=== PATIENT | male | born 1970 | race Hispanic/Latino ===

== ENCOUNTER 2025-02-23 08:42 | Observation (INO) | payer BC ==
[2025-02-23] MEDS ORDERED: ONDANSETRON 4 MG/2 ML VIAL ONE (08:58)
--- NOTE | 2025-02-23 09:19 | RAD REPORT ---
EXAMINATION: ONE VIEW CHEST XR CLINICAL INDICATION: syncope vs seizure TECHNIQUE: Frontal chest projection is submitted. Examination is limited by patient positioning and t echnique. COMPARISON: No prior exam. FINDINGS: The lungs are well inflated and clear. The heart is moderately enlarged. No displaced fractures ident ified. IMPRESSION: No acute intrathoracic abnormalities.
[2025-02-23 09:42] LABS: Absolute Eosinophils 0.3 K/uL (0-0.5); Absolute Lymphocytes (CBC) 1.9 K/uL (0.7-4.9); Absolute Monocytes 0.5 K/uL (0.1-1.3); Absolute Neutrophil 4.9 K/uL (1.8-8.0); Basophils % 0.6 % (0-1.3); Hematocrit 48.7 % (39.6-49.0); MCH 31.3 pg (27.0-35.0); MCHC 34.9 g/dL (32.0-36.0); MCV 89.7 fL (80-100); Monocytes % 6.2 % (3.3-12.3); Neutrophils % 64.2 % (41.7-73.7); Nucleated Red Blood Cells % 0.1 % (0-0); Platelets 148 thou/uL (152-406); RBC Red Blood Cell Count 5.43 M/uL (4.33-5.43); Red Cell Distribution Width 13.8 % (12.1-15.2)
[2025-02-23] MEDS ORDERED: HYDRALAZINE HCL 20 MG/ML VIAL ONE ×2 (09:42→13:37)
--- NOTE | 2025-02-23 09:42 | RAD REPORT ---
EXAM: CT brain without contrast HISTORY: possible syncope vs seizure COMPARISON: None TECHNIQUE: Multiple contiguous axial images were obtained and a CT of the brain without contrast. Sag ittal and coronal reformats were performed. One or more of the following dose reduction techniques were used: Automated exposure control, adjust ment of the mA and/or kV according to patient size, and/or iterative reconstruction. FINDINGS: No evidence of hydrocephalus, intracranial hemorrhage, or extra-axial fluid collection. The brain is normal in morphology. No evidence of midline shift or areas of brain edema. The calvarium is intact. The visualized paranasal sinuses and mastoid air cells are essentially clear . IMPRESSION: No evidence of acute intracranial abnormality.
[2025-02-23 09:43] LABS: PT Prothrombin Time 11.7 SECONDS (10-13.0); Protime INR 1.03
[2025-02-23 09:56] LABS: Albumin 3.7 g/dL (3.4-5.0); Anion Gap 7.7 mEq/L (5.0-15.0); Bilirubin Direct 0.2 mg/dL (0-0.2); Bilirubin Indirect, Calculated 0.6 mg/dL (0.2-0.8); Bilirubin Total 0.8 mg/dL (0.2-1.0); Globulin 3.7 g/dL (2.3-3.5); Magnesium 2.1 mg/dL (1.6-2.4); Potassium 3.7 mEq/L (3.5-5.1); Protein, Total 7.4 g/dL (6.4-8.2); Troponin High Sensitivity 25.2 pg/mL (<58.9)
--- NOTE | 2025-02-23 10:17 | EDPHYS ---
Physician Documentation [facility] Name: Nixon Jimenez Age: 54 yrs Sex: Male : 1970 Arrival Date: 02/23/2025 Time: 08:42 Bed 13 Private MD: ED Physician Dale Miller HPI: 02/23 10:12 This 54 yrs old Male presents to ER via EMS with complaints of Probable rn Seizure, Nausea/Vomiting. 10:12 The patient presents after having a possible seizure episode. Associated injury: The rn patient did not suffer any apparent associated injury. The patient has not experienced similar symptoms in the past. The patient has not recently seen a physician. 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 Bystanders reported shaking activity or twitching. Was brief and less than 30 seconds. Patient woke up slightly confused but upon arrival is back to baseline. Patient reports nausea and vomited en route. Patient denies seizure history. No cerebral problems in family or patient. Patient denies any preceding chest pain or shortness of breath. Denies pain at this time. No focal neurological deficits. Has not been on his blood pressure medication for some time, usually took losartan.. Historical: - Allergies: 08:44 No Known Allergies; db - PMHx: 08:44 Hypertensive disorder; db - Immunization history:: Adult Immunizations unknown. - Infectious Disease History:: Denies. - Social history:: Smoking status: Patient reports the use of cigarette tobacco products, smokes one-half pack cigarettes per day. - Family history:: not pertinent. - Hospitalizations: : No recent hospitalization is reported. ROS: 10:12 Constitutional: Negative for fever, chills, and weight loss, Neck: Negative for injury, rn pain, and swelling, Cardiovascular: Negative for chest pain, palpitations, and edema, Respiratory: Negative for shortness of breath, cough, wheezing, and pleuritic chest pain, Abdomen/GI: Positive for nausea and vomiting, negative for abdominal pain Back: Negative for injury and pain, MS/Extremity: Negative for injury and deformity, Skin: Negative for injury, rash, and discoloration, Neuro: Positive for possible seizure Exam: 10:12 Constitutional: This is a well developed, well nourished patient who is awake, alert, rn and in no acute distress. Head/Face: Normocephalic, atraumatic. Eyes: Pupils equal round and reactive to light, extra-ocular motions intact. Lids and lashes normal. Conjunctiva and sclera are non-icteric and not injected. Cornea within normal limits. Periorbital areas with no swelling, redness, or edema. Cardiovascular: Regular rate and rhythm. No pulse deficits. Respiratory: Speaking full sentences, unlabored. No increased work of breathing, no retractions or nasal flaring. Abdomen/GI: Soft, non-tender Skin: No cyanosis or discoloration, no lesions MS/ Extremity: Pulses equal, no cyanosis. Neurovascular intact. Full, normal range of motion. Equal circumference. Neuro: Awake and alert, GCS 15, oriented to person, place, time, and situation. Cranial nerves II-XII grossly intact. Motor strength 5/5 in all extremities. Sensory grossly intact. Cerebellar exam normal. 11:02 ECG was reviewed by the Attending Physician. rn Vital Signs: 08:44 BP 163 / 115; Pulse 87; Resp 18; Temp 98; Pulse Ox 96% ; Weight 104.33 kg; Height 5 ft. db 7 in. ; Pain 0/10; 09:39 BP 166 / 109; Pulse 79; Resp 16; Pulse Ox 97% ; db 10:00 BP 166 / 85; Pulse 66; Resp 15; Pulse Ox 97% on R/A; db 11:30 BP 146 / 80; Pulse 58; Resp 14; Pulse Ox 95% ; db 12:45 BP 169 / 93; Pulse 84; Resp 16; Pulse Ox 100% ; db 13:15 BP 137 / 65; Pulse 122; Resp 16; Pulse Ox 99% ; db 08:44 Body Mass Index 36.02 (104.33 kg, 170.18 cm) db 08:44 Pain Scale: Adult db MDM: 08:45 Medical Screening Exam initiated rn 10:12 Differential diagnosis: seizure, Syncope, TIA, arrhythmia. Data reviewed: vital signs, rn nurses notes, lab test result(s), EKG, radiologic studies, CT scan, and as a result, I will admit patient. Consideration of Admission/Observation Patient was admitted/placed on observation. Escalation of care including admission/observation considered. Counseling: I had a detailed discussion with the patient and/or guardian regarding the historical points, exam findings, and any diagnostic results supporting the discharge/admit diagnosis, lab results, radiology results, the need for further work-up and treatment in the hospital. Response to treatment: the patient's symptoms have markedly improved after treatment, and as a result, I will admit patient. ED course: Patient with NIH 0, normal neurological exam, CT head negative. Patient still reports nausea and patient was extremely hypertensive upon arrival. Chest x-ray images show cardiomegaly per my interpretation. Will admit for syncope versus seizure workup including cardiology evaluation.. 10:17 Counseling: I had a detailed discussion with the patient and/or guardian regarding the rn presence of at least one elevated blood pressure reading (>120/80) during this emergency department visit. Special discussion: I have referred the patient to see his PCP for further evaluation of high blood pressure. 02/23 08:46 Order name: Basic Metabolic Panel; Complete Time: 09:57 rn 02/23 08:46 Order name: CBC with Diff; Complete Time: 09:46 rn 02/23 08:46 Order name: Hepatic Function; Complete Time: 09:57 rn 02/23 08:46 Order name: Magnesium; Complete Time: 09:57 rn 02/23 08:46 Order name: Protime (+inr); Complete Time: 09:46 rn 02/23 08:46 Order name: Ptt, Activated; Complete Time: 09:46 rn 02/23 08:46 Order name: Troponin High Sensitivity; Complete Time: 09:57 rn 02/23 08:46 Order name: BNP; Complete Time: 09:57 rn 02/23 10:36 Order name: Basic Metabolic Panel EDMS 02/23 10:36 Order name: Basic Metabolic Panel EDMS 05 10:36 Order name: Basic Metabolic Panel EDMS 02/23 10:36 Order name: Basic Metabolic Panel EDMS 02/23 10:36 Order name: CBC with Automated Diff EDMS 02/23 10:36 Order name: CBC with Automated Diff EDMS 02/23 10:36 Order name: CBC with Automated Diff EDMS 02/23 10:36 Order name: CBC with Automated Diff EDMS 02/23 10:36 Order name: Magnesium EDMS 02/23 10:36 Order name: Magnesium EDMS 05 10:36 Order name: Magnesium EDMS 05 10:36 Order name: Magnesium EDMS 05 10:36 Order name: Magnesium EDMS 05 10:36 Order name: T4 Free EDMS 02/23 10:36 Order name: T4 Free EDMS 02/23 10:36 Order name: Thyroid Stimulating Hormone EDMS 02/23 10:36 Order name: Thyroid Stimulating Hormone EDMS 02/23 10:36 Order name: Troponin High Sensitivity EDMS 02/23 10:36 Order name: Troponin High Sensitivity EDMS 02/23 10:36 Order name: Troponin High Sensitivity EDMS 02/23 08:46 Order name: CT Head Brain wo Cont; Complete Time: 09:46 rn 02/23 08:46 Order name: Chest Single View XRAY; Complete Time: 09:27 rn 02/23 10:36 Order name: Echo with Doppler EDMS 02/23 10:36 Order name: EEG Request EDMS 02/23 08:46 Order name: Cardiac monitoring; Complete Time: 08:57 rn 02/23 08:46 Order name: EKG - Nurse/Tech; Complete Time: 08:57 rn 02/23 08:46 Order name: IV Saline Lock; Complete Time: 09:25 rn 02/23 08:46 Order name: Labs collected and sent; Complete Time: 09:25 rn 02/23 08:46 Order name: O2 Per Protocol; Complete Time: 08:57 rn 02/23 08:46 Order name: O2 Sat Monitoring; Complete Time: 08:57 rn 02/23 10:24 Order name: EKG - Nurse/Tech; Complete Time: 11:28 la1 EC:02 Rate is 88 beats/min. Rhythm is regular. QRS [place] is Normal. CT interval is shortened. rn QRS interval is normal. QT interval is normal. No Q waves. T waves are Normal. No ST changes noted. Clinical impression: NSR w/ Non-specific ST/T Changes. Interpreted by me. Reviewed by me. Administered Medications: 09:18 Drug: Ondansetron IVP 4 mg IVP once; over 2 minutes Route: IVP; Site: right wrist; db 12:38 Follow up: Response: No adverse reaction; Nausea is decreased db 10:24 Not Given (Other Intervention Used): hydralazine5 mg IVP once la1 12:51 CANCELLED (Other Intervention Used): [id number] mg PO once la1 13:15 Drug: Heparin ([place] Drip) 12 units/kg/hr - ([place] [address] units, D5W IV 500 ml) IV at db calculated rate Per protocol; Max initial rate 1000 units/hr {Co-Signature: jl7 (Haylie Sigala RN).} Route: IV; Rate: calculated rate; Site: right wrist; 14:38 Follow up: Response: No adverse reaction; IV Status: Infusion continued upon admission db 13:15 Drug: Heparin (IA-Bolus No thrombolytic) - HEParin IVP 60 units/kg IVP once; Max 5000 db units {Co-Signature: dd2 (AMANDO DINH RN).} Route: IVP; Site: right wrist; 14:38 Follow up: Response: No adverse reaction db 13:15 Drug: Aspirin PO Chewable Tablet 324 mg PO once; 81 mg tablets x 4 Route: PO; db 14:38 Follow up: Response: No adverse reaction db Disposition Summary: 02/23/25 10:16 Hospitalization Ordered Notes: Hospitalization Status: Observation rn Provider: Luke Paris rn Location: Telemetry/MedSurg (observation) rn Condition: Stable rn Problem: new rn Symptoms: have improved rn Bed/Room Type: Standard rn Room Assignment: 206(02/23/25 11:43) bd Diagnosis - Syncope rn - Possible seizure rn - Essential (primary) hypertension rn Forms: - Medication Reconciliation Form rn - SBAR form rn - Leadership Thank You Letter rn Signatures: Dispatcher [employer] [facility] Asia Carroll Dale Miller MD MD rn Attema, Lee, CASING IN LINE FEEDER-C CASING IN LINE FEEDER-Cla1 Imelda Sharma RN RN db Leal, Jahala RN jl7 AMANDO DINH RN dd2 Corrections: (The following items were deleted from the chart) 08:47 08:47 Chest Single View+RAD.RAD.BRZ ordered. EDAK EDAK 10:15 10:12 Constitutional: This is a well developed, well nourished patient who is awake, rn alert, and in no acute distress. Head/Face: Normocephalic, atraumatic. Eyes: Pupils equal round and reactive to light, extra-ocular motions intact. Lids and lashes normal. Conjunctiva and sclera are non-icteric and not injected. Cornea within normal limits. Periorbital areas with no swelling, redness, or edema. Cardiovascular: Regular rate and rhythm. No pulse deficits. Respiratory: Speaking full sentences, unlabored. No increased work of breathing, no retractions or nasal flaring. Abdomen/GI: Soft, non-tender Skin: No cyanosis or discoloration, no lesions MS/ Extremity: Pulses equal, no cyanosis. Neurovascular intact. Full, normal range of motion. Equal circumference. Neuro: Awake and alert, GCS 15, oriented to person, place, time, and situation. Cranial nerves II-XII grossly intact. Motor strength 5/5 in all extremities. Sensory grossly intact. Cerebellar exam normal. rn 10:46 10:16 rn bd 10:47 10:46 229 bd bd 11:43 10:47 bd bd 12:51 12:50 Aspirin PO 81 mg PO once ordered. la1 la1
--- NOTE | 2025-02-23 10:17 | ER ---
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 BPS 160'S/105 FOR EMS. HX OF HTN NOT TAKING BP MEDICATIONS. COMPLAINS OF N/V IN AMBULANCE. Coronavirus screen: Client denies travel out of the [place] in the last 14 days. At this time, the client does not indicate any symptoms associated with coronavirus-19. Ebola Screen: Patient negative for fever greater than or equal to 101.5 degrees Fahrenheit, and additional compatible Ebola Virus Disease symptoms Patient denies exposure to infectious person. Patient denies travel to an Ebola-affected area in the 21 days before illness onset. No symptoms or risks identified at this time. Initial Sepsis Screen: Does the patient meet any 2 criteria? No. Patient's initial sepsis screen is negative. Does the patient have a suspected source of infection? No. Patient's initial sepsis screen is negative. Risk Assessment: Do you want to hurt yourself or someone else? Patient reports no desire to harm self or others. Onset of symptoms was February 23, 2025. Care prior to arrival: Glucose check: 118. 08:44 Method Of Arrival: EMS: [facility] db 08:44 Acuity: ELIZABETH 2 db Triage Assessment: 08:44 General: Appears in no apparent distress. comfortable, Behavior is calm, cooperative. db Pain: Denies pain. Neuro: Level of Consciousness is awake, alert, obeys commands, Oriented to person, place, time, situation, Seizure activity reported prior to arrival. Cardiovascular: No deficits noted. Capillary refill < 3 seconds Patient's skin is warm and dry. Respiratory: Airway is patent Respiratory effort is even, unlabored, Respiratory pattern is regular, symmetrical. Historical: - Allergies: 08:44 No Known Allergies; db - PMHx: 08:44 Hypertensive disorder; db - Immunization history:: Adult Immunizations unknown. - Infectious Disease History:: Denies. - Social history:: Smoking status: Patient reports the use of cigarette tobacco products, smokes one-half pack cigarettes per day. - Family history:: not pertinent. - Hospitalizations: : No recent hospitalization is reported. Screenin:30 [facility] ED Fall Risk Assessment (Adult) History of falling in the last 3 months, db including since admission No falls in past 3 months (0 pts) Confusion or Disorientation No (0 pts) Intoxicated or Sedated No (0 pts) Impaired Gait No (0 pts) Mobility Assist Device Used No (0 pt) Altered Elimination No (0 pt) Score/Fall Risk Level 0 - 2 = Low Risk Oriented to surroundings, Maintained a safe environment. Abuse screen: Denies threats or abuse. Denies injuries from another. Nutritional screening: No deficits noted. Tuberculosis screening: No symptoms or risk factors identified. Assessment: 08:52 Reassessment: PATIENT VOMITING. NOTIFIED DR. MILLER. SEE MAR. db 09:30 Reassessment: Patient appears in no apparent distress at this time. Patient and/or db family updated on plan of care and expected duration. Pain level reassessed. Patient is alert, oriented x 3, equal unlabored respirations, skin warm/dry/pink. 10:20 Reassessment: Patient appears in no apparent distress at this time. Patient and/or db family updated on plan of care and expected duration. Pain level reassessed. Patient is alert, oriented x 3, equal unlabored respirations, skin warm/dry/pink. Patient states feeling better. Patient states symptoms have improved. General: Appears in no apparent distress. comfortable, Behavior is calm, cooperative. Pain: Denies pain. Neuro: Level of Consciousness is awake, alert, obeys commands, Oriented to person, place, time, situation. Respiratory: Airway is patent Respiratory effort is even, unlabored, Respiratory pattern is regular, symmetrical. 11:30 Reassessment: Patient appears in no apparent distress at this time. Patient and/or db family updated on plan of care and expected duration. Pain level reassessed. Patient is alert, oriented x 3, equal unlabored respirations, skin warm/dry/pink. 12:38 Reassessment: SAS PROGRAMMER REMOTE AT PATIENT BEDSIDE. db 12:39 Reassessment: Patient appears in no apparent distress at this time. Patient and/or db family updated on plan of care and expected duration. Pain level reassessed. Patient is alert, oriented x 3, equal unlabored respirations, skin warm/dry/pink. 13:29 Reassessment: PATIENT EEG FINISHED. PATIENT RESTING. NOTIFIED 2ND FLOOR PATIENT IS ON db THE WAY. Vital Signs: 08:44 BP 163 / 115; Pulse 87; Resp 18; Temp 98; Pulse Ox 96% ; Weight 104.33 kg; Height 5 ft. db 7 in. ; Pain 0/10; 09:39 BP 166 / 109; Pulse 79; Resp 16; Pulse Ox 97% ; db 10:00 BP 166 / 85; Pulse 66; Resp 15; Pulse Ox 97% on R/A; db 11:30 BP 146 / 80; Pulse 58; Resp 14; Pulse Ox 95% ; db 12:45 BP 169 / 93; Pulse 84; Resp 16; Pulse Ox 100% ; db 13:15 BP 137 / 65; Pulse 122; Resp 16; Pulse Ox 99% ; db 08:44 Body Mass Index 36.02 (104.33 kg, 170.18 cm) db 08:44 Pain Scale: Adult db ED Course: 08:44 Arm band placed on Patient placed in an exam room. db 08:45 Patient arrived in ED. rn 08:45 Dale Miller MD is Attending Physician. rn 08:57 Imelda Sharma, BRODY is Primary Nurse. db 09:05 Missed attempt(s): 22 gauge in right antecubital area. ap3 09:06 Triage completed. db 09:12 Chest Single View XRAY In Process Unspecified. EDMS 09:18 Initial lab(s) drawn, by me, sent to lab. EKG done. Inserted saline lock: 20 gauge in db right wrist, using aseptic technique. Blood collected. Flushed with 10 mL NS. 09:24 CT Head Brain wo Cont In Process Unspecified. EDMS 09:26 Patient moved back from CT. db 10:16 Luke Paris is Hospitalizing Provider. rn 12:37 No provider procedures requiring assistance completed. db 12:37 Patient has correct armband on for positive identification. Bed in low position. Call db light in reach. Side rails up X 1. Client placed on continuous cardiac and pulse oximetry monitoring. NIBP monitoring applied. academic dean on. Pulse ox on. NIBP on. Warm blanket given. Pillow given. 12:39 Patient admitted, IV remains in place. db 12:39 Provided Education on: ADMIT. db Administered Medications: 09:18 Drug: Ondansetron IVP 4 mg IVP once; over 2 minutes Route: IVP; Site: right wrist; db 12:38 Follow up: Response: No adverse reaction; Nausea is decreased db 10:24 Not Given (Other Intervention Used): hydralazine5 mg IVP once la1 12:51 CANCELLED (Other Intervention Used): [id number] mg PO once la1 13:15 Drug: Heparin ([place] Drip) 12 units/kg/hr - ([place] [address] units, D5W IV 500 ml) IV at db calculated rate Per protocol; Max initial rate 1000 units/hr {Co-Signature: jl7 (Haylie Sigala RN).} Route: IV; Rate: calculated rate; Site: right wrist; 14:38 Follow up: Response: No adverse reaction; IV Status: Infusion continued upon admission db 13:15 Drug: Heparin (NH-Bolus No thrombolytic) - HEParin IVP 60 units/kg IVP once; Max 5000 db units {Co-Signature: dd2 (AMANDO DINH RN).} Route: IVP; Site: right wrist; 14:38 Follow up: Response: No adverse reaction db 13:15 Drug: Aspirin PO Chewable Tablet 324 mg PO once; 81 mg tablets x 4 Route: PO; db 14:38 Follow up: Response: No adverse reaction db Medication: 12:37 VIS not applicable for this client. db Outcome: 10:16 Decision to Hospitalize by Provider. rn 12:39 Admitted to Med/surg room 206, db 12:39 Condition: stable 12:39 Instructed on the need for admit, 13:39 Admitted to Med/surg accompanied by nurse, db 14:39 Patient left the ED. db Signatures: Dispatcher [employer] EDMS Dale Miller MD MD rn Prokisch, Amanda, RN RN ap3 Imelda Sharma RN RN Jarrod Coyle ADOPTION COORDINATOR-Cla1 Haylie Sigala RN jl7 AMANDO DINH RN dd2
--- NOTE | 2025-02-23 11:50 | P.HP ---
Certification for Inpatient Patient admitted to: Observation With expected LOS: <2 Midnights Patient will require the following post-hospital care: None Practitioner: I am a practitioner with admitting privileges, knowledge of patient current condition, hospital course, and medical plan of care. Services: Services provided to patient in accordance with Admission requirements found in Title 42 Section 412.3 of the Code of Federal Regulations Patient History Date of Service: 02/23/25 Reason for admission: Syncope History of Present Illness: 54-year-old male with history of hypertension has been noncompliant with his medication presents to the emergency department with chief complaint of syncope versus seizure. 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 He was incontinent during this episode, coworkers reported some possible seizure-like activity. He denies similar episodes in the past, he was seen at outside hospital around 3 years ago and had a heart catheterization with no intervention needed at that time. No history of seizures. Patient was evaluated in the emergency department his initial has not troponin was normal at 25.2 BNP of 136 blood pressure was markedly elevated initially at 165/120. No further seizure-like activity was observed, ED provider wishes to admit patient to the hospital under observation for syncope, possible seizure. His EKG showed sinus arrhythmia with no blocks. Allergies No Known Allergies Allergy (Unverified 02/23/25 10:38) - Past Medical/Surgical History -: Hypertension -: None Psychosocial/ Personal History: Lives at home with his girlfriend - Social History Alcohol use: No CD- Drugs: No Caffeine use: Yes Place of Residence: Home Review of Systems 10-point ROS is otherwise unremarkable Cardiovascular: Light Headedness Neurological: Other (Syncope versus seizure) Physical Examination - Physical Exam General: Alert, In no apparent distress, Oriented x3 HEENT: Atraumatic, PERRLA Neck: Supple, 2+ carotid pulse no bruit, No LAD Respiratory: Clear to auscultation bilaterally, Normal air movement Cardiovascular: Regular rate/rhythm, Normal S1 S2 Gastrointestinal: Normal bowel sounds, No tenderness Musculoskeletal: No tenderness Integumentary: No rashes Neurological: Normal speech, Normal strength at 5/5 x4 extr - Studies Laboratory Data (last 24 hrs) 05/05/25 05/05/25 05/05/25 09:18 09:18 09:18 WBC 7.60 Hgb 17.0 Hct 48.7 Plt Count 148 L PT 11.7 INR 1.03 APTT 27.0 L Sodium 138 Potassium 3.7 BUN 15 Creatinine 0.85 Glucose 124 H Magnesium 2.1 Total Bilirubin 0.8 AST 59 H ALT 79 H Alkaline Phosphatase 66 Assessment and Plan - Plan Assessment: Syncope versus seizure Sinus arrhythmia Hypertension Plan: Syncope versus seizure Sinus arrhythmia Monitor on telemetry Cardiology consultation, echocardiogram ordered Will also obtain EEG and neurology consultation Troponins will be trended Patient asymptomatic at this time Last cardiac workup was heart cath over 3 years ago at [facility] with no intervention Hypertension Off of medications for over a year now Was previously taking losartan, will start losartan 25 mg daily for now and monitor blood pressure DVT PPX: Lovenox Code status: Full code Discharge Plan: Home Plan to discharge in: 24 Hours - Advance Directives Does patient have a Living Will: No Does patient have a Durable POA for Healthcare: No - Code Status/Comfort Care Code Status Assessed: Yes (Full code) Critical Care: No Time Spent Managing Pts Care (In Minutes): 64
--- NOTE | 2025-02-23 12:02 | EKG ---
Test Date: 2025-02-23 Test Time: 08:54:02 Personal Injury Legal Assistant: KIMBERLY MEASUREMENT RESULTS: Intervals: Rate: 88 MT: 104 QRSD: 92 QT: 370 QTc: 447 [place]: P: 48 MT: 104 QRS: 2 T: 47 INTERPRETIVE STATEMENTS: Sinus rhythm with short MT Possible Left atrial enlargement Borderline ECG No previous ECG available for comparison Electronically Signed On 02-23-25 12:01:51 CDT by Josiah Perea
[2025-02-23] MEDS ORDERED: ASPIRIN 81 MG CHEWABLE TABLET ONE (12:58)
[2025-02-23] MEDS ORDERED: HEPARIN 5000 UNIT/ML 1 ML VIAL ONE (12:58)
[2025-02-23] MEDS ORDERED: HEPARIN/D5W 25,000 UNIT/500 ML BAG IV ONE (12:58)
[2025-02-23] MEDS: HEPARIN/D5W 25,000 UNIT/500 ML BAG IV SCH (13:15)
--- NOTE | 2025-02-23 13:16 | P.CNS ---
Date of Consult: 02/23/25 Chief Complaint: Syncope History of Present Illness: Patient with PMH of HTN, presented to the ER with syncope, he say he felt lightheaded then he passed, denies any chest pain, no palpitations, no syncope. report EOTH drinking daily, smoking, denies drugs. Allergies No Known Allergies Allergy (Unverified 02/23/25 10:38) Home medications list reviewed: Yes - Past Medical/Surgical History -: Hypertension -: None Psychosocial/ Personal History: Lives at home with his girlfriend - Social History Alcohol use: No CD- Drugs: No Caffeine use: Yes Place of Residence: Home Review of Systems 10-point ROS is otherwise unremarkable Physical Examination General: Alert, In no apparent distress HEENT: Atraumatic, PERRLA, Mucous membr. moist/pink, EOMI, Sclerae nonicteric Neck: Supple, 2+ carotid pulse no bruit, No LAD, Without JVD or thyroid abnormality Respiratory: Clear to auscultation bilaterally, Normal air movement Cardiovascular: Regular rate/rhythm, Normal S1 S2 Gastrointestinal: Normal bowel sounds, No tenderness Musculoskeletal: No tenderness Integumentary: No rashes Neurological: Normal gait, Normal speech, Normal tone, Normal affect Lymphatics: No axilla or inguinal lymphadenopathy Laboratory Data (last 24 hrs) 02/23/25 02/23/25 02/23/25 09:18 09:18 09:18 WBC 7.60 Hgb 17.0 Hct 48.7 Plt Count 148 L PT 11.7 INR 1.03 APTT 27.0 L Sodium 138 Potassium 3.7 BUN 15 Creatinine 0.85 Glucose 124 H Magnesium 2.1 Total Bilirubin 0.8 AST 59 H ALT 79 H Alkaline Phosphatase 66 - Problems (1) Syncope Current Visit: Yes Status: Acute Plan: unsure about etiology yet. continue to monitor on tele. get echo (2) NSTEMI (non-ST elevated myocardial infarction) Current Visit: Yes Status: Acute Plan: ASA 325 mg p X1 then continue ASA 81 mg daily Heparin ACS protocol NPO after midnight for coronary angiogram in am Lipitor 40 mg daily (3) HTN (hypertension) Current Visit: Yes Status: Acute Plan: continue to monitor.
[2025-02-23] MEDS: HYDRALAZINE HCL 20 MG/ML VIAL IV PRN (13:50)
[2025-02-23 14:37] VITALS: BMI 36.0
[2025-02-23] MEDS: LOSARTAN POTASSIUM 50 MG TABLET PO SCH (16:00)
[2025-02-23] MEDS: ATORVASTATIN 40 MG TAB PO SCH (20:13)
[2025-02-24 04:12] LABS: Absolute Basophils 0.1 K/uL (0-0.5); Absolute Eosinophils 0.3 K/uL (0-0.5); Absolute Lymphocytes (CBC) 2.8 K/uL (0.7-4.9); Absolute Monocytes 0.7 K/uL (0.1-1.3); Absolute Neutrophil 5.2 K/uL (1.8-8.0); Basophils % 0.7 % (0-1.3); Eosinophils % 3.5 % (0-4.4); Hemoglobin 16.1 g/dL (13.6-17.9); Lymphocytes % 30.4 % (15.3-44.8); MCH 31.5 pg (27.0-35.0); MCV 89.9 fL (80-100); MPV 9.3 fL (7.6-11.3); Neutrophils % 57.4 % (41.7-73.7); Nucleated Red Blood Cells % 0.1 % (0-0); Platelets 156 thou/uL (152-406); RBC Red Blood Cell Count 5.12 M/uL (4.33-5.43); Red Cell Distribution Width 13.9 % (12.1-15.2)
[2025-02-24 04:29] LABS: Anion Gap 7.7 mEq/L (5.0-15.0); Magnesium 2.3 mg/dL (1.6-2.4); Potassium 3.7 mEq/L (3.5-5.1); Thyroid Stimulating Hormone 1.72 uIU/mL (0.358-3.740)
[2025-02-24 04:31] LABS: Troponin High Sensitivity 122.1 pg/mL (<58.9)
[2025-02-24] MEDS: ASPIRIN EC 81 MG TAB PO SCH (08:37)
[2025-02-24] MEDS ORDERED: LOSARTAN POTASSIUM 50 MG TABLET PO SCH (09:00)
[2025-02-24] MEDS: POTASSIUM CL SA 10 MEQ TAB PO ONE (09:00)
[2025-02-24] MEDS ORDERED: ENOXAPARIN 40 MG/0.4 ML SQ SCH (09:00)
[2025-02-24] MEDS: NA CHLORIDE 0.9% 500 ML ONE (09:28)
[2025-02-24] MEDS ORDERED: LIDOCAINE 1% 20 ML MDV ONE (09:44)
[2025-02-24] MEDS ORDERED: HEPARIN 10,000 UNIT/10 ML VIAL IV ONE (09:44)
[2025-02-24] MEDS ORDERED: MIDAZOLAM HCL 2 MG/2 ML INJ ONE (09:44)
[2025-02-24] MEDS ORDERED: ATROPINE SULF 1 MG/10 ML SYR IV ONE (09:44)
[2025-02-24] MEDS ORDERED: HEPA 1000U/500MLS 2,000 UNIT/1,000 ML BAG IV ONE (09:44)
[2025-02-24] MEDS ORDERED: CLOPIDOGREL 75 MG TABLET ONE (09:45)
[2025-02-24] MEDS ORDERED: ASPIRIN 325 MG TAB ONE (09:45)
[2025-02-24] MEDS ORDERED: TICAGRELOR 90 MG TABLET PO ONE (09:45)
[2025-02-24] MEDS ORDERED: FENTANYL CITR 100 MCG/2 ML ONE (09:45)
[2025-02-24] MEDS ORDERED: HEPARIN 5000 UNIT/ML 1 ML VIAL ONE (09:45)
--- NOTE | 2025-02-24 11:18 | P.PN ---
Subjective Date of Service: 02/24/25 Chief Complaint: Syncope Subjective: No new changes, No C/O voiced, Tolerating diet, Ambulating, Improving Review of Systems 10-point ROS is otherwise unremarkable Physical Examination - Vital Signs Temperature: 98.1 F Blood Pressure: 150/108 Pulse: 66 Respirations: 18 Pulse Ox (%): 96 - Physical Exam General: Alert, In no apparent distress HEENT: Atraumatic, PERRLA, EOMI Neck: Supple, JVD not distended Respiratory: Clear to auscultation bilaterally, Normal air movement Cardiovascular: Regular rate/rhythm, Normal S1 S2 Gastrointestinal: Normal bowel sounds, No tenderness Musculoskeletal: No tenderness Integumentary: No rashes Neurological: Normal speech, Normal tone, Normal affect Lymphatics: No axilla or inguinal lymphadenopathy - Studies Medications List Reviewed: Yes Assessment And Plan - Current Problems (Diagnosis) (1) Syncope Current Visit: Yes Status: Acute Plan: Patient was monitored on telemetery overnight, no arrhythmia seen, no pauses outpatient follow up with cardiology for an event monitor (2) NSTEMI (non-ST elevated myocardial infarction) Current Visit: Yes Status: Acute Plan: Coronary angiogram was done and shown mild CAD continue ASA 81 mg daily Lipitor 40 mg daily (3) HTN (hypertension) Current Visit: Yes Status: Acute Plan: still high on Losartan 25 mg daily add HCTZ 25 mg daily.
[2025-02-24] MEDS: ACETAMINOPHEN 325 MG TABLET ONE (12:16)
[2025-02-24 13:09] VITALS: O2SAT 96
[2025-02-24] MEDS: HYDROCODONE/APAP 5/325 MG TAB PO ONE (13:48)
--- NOTE | 2025-02-24 14:18 | EEG ---
CHART: [id number] TEST ID#: [id number] DATE OF STUDY: 02/23/2025 THE EEG WAS RECORDED PORTABLE IN THE EMERGENCY ROOM ON A 17 CHANNEL MACHINE. ELECTRODES WERE APPLIED IN THE USUAL MANNER USING THE INTERNATIONAL 10-20 SYSTEM. THE [place] BACKGROUND RHYTHM IN THIS RECORD CONSISTS OF VERY WELL DEVELOPED AND WELL ORGANIZED WAVES OF 9.5-10 HZ., MAXIMAL IN THE POSTERIOR HEAD REGIONS WHICH ATTENUATE NORMALLY WITH EYE OPENING. LOW-VOLTAGE 18-22 HZ ACTIVITY IS EXPRESSED IN THE FRONTAL REGIONS. THERE ARE NO FOCAL OR LATERALIZING FEATURES. NO EPILEPTIFORM ACTIVITY APPEARS. SLEEP DID NOT OCCUR. HYPERVENTILATION WAS NOT PERFORMED. PHOTIC STIMULATION PRODUCED FAIR DRIVING BILATERALLY. IMPRESSION: NORMAL EEG FOR THE AGE OF THE PATIENT IN [place].
[2025-02-24 17:01] VITALS: BP 149/82; TEMP 98.2
[2025-02-24] MEDS: ACETAMIN/CAFFEINE/BUTALB TAB PO PRN (18:07)
--- NOTE | 2025-02-24 19:01 | P.DS ---
Admission Date: 02/23/25 Discharge Date: 02/24/25 Disposition: ROUTINE DISCHARGE Discharge Condition: GOOD Reason for Admission: Syncope Vital Signs/Physical Exam: Temp Pulse Resp BP Pulse Ox 98.2 F 78 16 149/82 H 96 02/24/25 16:00 02/24/25 16:00 02/24/25 16:36 02/24/25 16:00 02/24/25 16:00 Laboratory Data at Discharge: WBC 9.10 thou/uL (4.3-10.9) 02/24/25 03:48 Hgb 16.1 g/dL (13.6-17.9) 02/24/25 03:48 Hct 46.0 % (39.6-49.0) 02/24/25 03:48 Plt Count 156 thou/uL (152-406) 02/24/25 03:48 PT 11.7 SECONDS (10-13.0) 02/23/25 09:18 INR 1.03 02/23/25 09:18 APTT 53.0 SECONDS (27.2-37.4) H 02/24/25 03:48 Sodium 141 mEq/L (136-145) 02/24/25 03:48 Potassium 3.7 mEq/L (3.5-5.1) 02/24/25 03:48 BUN 16 mg/dL (7-18) 02/24/25 03:48 Creatinine 0.75 mg/dL (0.70-1.30) 02/24/25 03:48 Glucose 111 mg/dL (74-106) H 02/24/25 03:48 Magnesium 2.3 mg/dL (1.6-2.4) 02/24/25 03:48 Total Bilirubin 0.8 mg/dL (0.2-1.0) 02/23/25 09:18 AST 59 U/L (15-37) H 02/23/25 09:18 ALT 79 U/L (16-61) H 02/23/25 09:18 Alkaline Phosphatase 66 U/L (45-117) 02/23/25 09:18 Home Medications: Aspirin [Aspirin EC 81 MG] 81 mg PO DAILY 30 Days #30 tab 02/24/25 Atorvastatin Calcium [Lipitor] 40 mg PO BEDTIME 30 Days #30 tab 02/24/25 Losartan Potassium [Cozaar*] 25 mg PO DAILY 30 Days #30 tab 02/24/25 hydroCHLOROthiazide [Hydrochlorothiazide] 25 mg PO DAILY 30 Days #30 tab 02/24/25 New Medications: Aspirin [Aspirin EC 81 MG] 81 mg PO DAILY 30 Days #30 tab Losartan Potassium [Cozaar*] 25 mg PO DAILY 30 Days #30 tab hydroCHLOROthiazide [Hydrochlorothiazide] 25 mg PO DAILY 30 Days #30 tab Atorvastatin Calcium [Lipitor] 40 mg PO BEDTIME 30 Days #30 tab Physician Discharge Instructions: 1. Please call and schedule a follow-up appointment with your PCP in 3-5 days - Please follow-up with your PCP for medication refills/adjustments 2. Please call and schedule a follow-up appointment with Dr. Perea in one week -Coronary angiogram showing mild CAD -new blood pressure medications prescribed, check your blood pressure twice daily and keep a record for Dr. Perea to review and make medication adjustments. 3. Continue heart healthy diet 4. activity restrictions do not lift more than 10 pounds for four days 5. Return to the ED if symptoms worsen New medications Aspirin 81 mg daily Atorvastatin 40 mg daily Hydrochlorothiazide 25 mg daily Losartan 25 mg daily Diet: AHA Activity: No lifting more than 10 lbs Followup: NONE,NONE [Primary Care Provider] -
[2025-02-25] MEDS ORDERED: hydroCHLOROthiazide 25 MG TAB PO SCH (09:00)
--- NOTE | 2025-02-25 10:29 | ECHO ---
HEIGHT: 5 ft 7 in WEIGHT: 230 lb 0 oz DATE OF STUDY: 02/24/[address]: Jarrod Galvez NP 2-DIMENSIONAL: YES M.MODE: YES DOPPLER: YES COLOR FLOW: YES TDS: YES PORTABLE: YES DEFINITY: BUBBLE STUDY: DIAGNOSIS: SYNCOPE CARDIAC HISTORY: CATHERIZATION: YES SURGERY: NO PROSTHETIC VALVE: NO PACEMAKER: NO MEASUREMENTS (cm) DIASTOLIC (NORMALS) SYSTOLIC (NORMALS) IVSd 1.4 (0.6-1.2) LA Diam 3.2 (1.9-4.0) LVEF 60-65% LVIDd 4.3 (3.5-5.7) LVIDs 2.9 (2.0-3.5) %FS 33% LVPWd 1.4 (0.6-1.2) Ao Diam 2.9 (2.0-3.7) 2 DIMENSIONAL ASSESSMENT: RIGHT ATRIUM: NORMAL LEFT ATRIUM: NORMAL RIGHT VENTRICLE: NORMAL LEFT VENTRICLE: MILD LEFT VENTRICULAR HYPERTROPHY TRICUSPID VALVE: TRACE TRICUSPID REGURGITATION MITRAL VALVE: NORMAL PULMONIC VALVE: NORMAL AORTIC VALVE: NORMAL PERICARDIAL EFFUSION: NONE AORTIC ROOT: NORMAL LEFT VENTRICULAR WALL MOTION: NORMAL DOPPLER/COLOR FLOW: NORMAL COMMENTS: 1. MILD LEFT VENTRICULAR HYPERTROPHY 2. NORMAL LEFT VENTRICULAR SYSTOLIC FUNCTION, EJECTION FRACTION 60-65%, NORMAL WALL MOTION 3. NORMAL DIASTOLIC FUNCTION TECHNOLOGIST: NADIA AVILA
--- NOTE | 2025-02-25 13:23 | OP ---
Date of Procedure: 02/24/2025 Surgeon: Josiah Perea Procedure Performed: Left heart catheterization with selective coronary angiogram. Indication For Procedure: [id number]. Complications: None. Estimated Blood Loss: Less than 50 cc. Access: Right radial, closed by TR band. Sedation Time: 20 minutes with 1 of Versed and 25 of fentanyl. Description Of Procedure: After risks, benefits, and alternatives were explained to the patient, the patient agreed to proceed with procedure and signed informed consent. The patient was brought back to the porcelain enamel laborer and prepped and draped in sterile fashion. Time-out was performed. Sedation was adm inistered. Next, right radial access was obtained using ultrasound-guided micropuncture technique. Allyn 4 catheter was advanced over the J-wire to the LV cavity. LVEDP was obtained. Pullback did no t show any gradient. Same catheter was used for selective angiogram of the left and right coronary s ystems. At the end of procedure, catheter was removed over a J-wire. Sheath was removed. TR band w as applied. Hemostasis achieved. The patient was moved back to recovery in stable condition. Findings: 1. Left main, normal. 2. LAD, mild luminal irregularities. 3. Left circ, mild luminal irregularities. 4. RCA, large, dominant with mild luminal irregularities. 5. LVEDP 14 mmHg. Assessment And Plan: 1. Normal coronaries with normal filling pressures. 2. Plan is to continue medical management. JANNY/DEEJAY Voice ID: [id number] Report ID: [id number]
--- NOTE | 2025-02-26 11:54 | EKG ---
Test Date: 2025-02-23 Test Time: 10:33:18 Charger Operator Helper: KIMBERLY MEASUREMENT RESULTS: Intervals: Rate: 55 PA: 100 QRSD: 98 QT: 416 QTc: 397 [place]: P: 50 PA: 100 QRS: 7 T: 22 INTERPRETIVE STATEMENTS: Sinus bradycardia with marked sinus arrhythmia with short PA Otherwise normal ECG Compared to ECG 02/23/2025 08:54:02 Sinus rhythm no longer present Electronically Signed On 02-26-25 11:47:40 CDT by Josiah Perea
== END 2025-02-24 20:26 | disposition home or self-care (01) ==
LOC: ER 08:42 → ERHOLD 10:31 → 2ND 12:38
PROVIDERS: ADMIT Internal Medicine; ATTEND Hospitalist
PROC: 4A023N7 Measurement of Cardiac Sampling and Pressure, Left Heart, Percutaneous Approach (ICD-10-PCS; principal; 2025-02-23)
PROC: B2111ZZ Fluoroscopy of Multiple Coronary Arteries using Low Osmolar Contrast (ICD-10-PCS; 2025-02-23)
DX: I21.4 Non-ST elevation (NSTEMI) myocardial infarction (principal); R55 Syncope and collapse; I25.10 Atherosclerotic heart disease of native coronary artery without angina pectoris; R00.1 Bradycardia, unspecified; I10 Essential (primary) hypertension; Z91.148 Patient's other noncompliance with medication regimen for other reason; F17.210 Nicotine dependence, cigarettes, uncomplicated
CPT/HCPCS: 96365; 95816; 93005 ×2; 93306; 85025 ×2; 80048 ×2; 36415; 83735 ×2; 85610; 80076; 85730 ×4; 84443; 84484 ×5; 84439; 83880; 70450; 71045; 93458; 76937; 96375; 99285; C1893; Q9966; J1644 ×2; J0360 ×3; J2003; J2250; J3010; J2405; J7040; G0378 ×4; 99152; 99153; J0461